=== PATIENT | female | born 1965 | race Hispanic/Latino ===

== ENCOUNTER 2019-04-23 11:33 | Emergency (ER) | payer OTHER, SELFPAY ==
[2019-04-23] MEDS ORDERED: LIDOCAINE 1% MPF 5 ML VIAL ONE (12:22)
[2019-04-23] MEDS ORDERED: BUPIVACAINE 0.5% PF 10 ML VIAL ONE (12:22)
[2019-04-23] MEDS ORDERED: TETANUS & DIPHTHERIA TOX,ADULT 0.5 ML VIAL ONE (12:27)
--- NOTE | 2019-04-23 12:51 | EDPHYS ---
Physician Documentation [facility] Name: Alexa Barr Age: 53 yrs Sex: Female : 1965 Arrival Date: 04/23/2019 Time: 11:35 Bed 19 Private MD: ED Physician Suraj Perdomo HPI: 04/23 12:30 This 53 yrs old Female presents to ER via Ambulatory with complaints of Thumb kb laceration. 12:30 The patient has a laceration related to: opening aluminum can occurred at home, and kb there are no complicating factors. The injury was accidental. The laceration(s) is(are) located on the palmar aspect of proximal phalanx of right thumb. Onset: The symptoms/episode began/occurred just prior to arrival. Associated signs and symptoms: The patient has no apparent associated signs or symptoms. The patient has not experienced similar symptoms in the past. The patient has not recently seen a physician. 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 - Social history:: Smoking status: Patient/guardian denies using tobacco. - Ebola Screening: : Patient denies travel to an Ebola-affected area in the 21 days before illness onset. ROS: 12:27 Constitutional: Negative for fever, chills, and weight loss, ENT: Negative for injury, kb pain, and discharge, Neck: Negative for injury, pain, and swelling, Cardiovascular: Negative for chest pain, palpitations, and edema, Respiratory: Negative for shortness of breath, cough, wheezing, and pleuritic chest pain, Abdomen/GI: Negative for abdominal pain, nausea, vomiting, diarrhea, and constipation, Back: Negative for injury and pain, Neuro: Negative for headache, weakness, numbness, tingling, and seizure. 12:27 Skin: Positive for laceration(s), of the palmar aspect of proximal phalanx of right thumb. Exam: 12:27 Constitutional: This is a well developed, well nourished patient who is awake, alert, kb and in no acute distress. Head/Face: Normocephalic, atraumatic. ENT: Nares patent. No nasal discharge, no septal abnormalities noted. Tympanic membranes are normal and external auditory canals are clear. Oropharynx with no redness, swelling, or masses, exudates, or evidence of obstruction, uvula midline. Mucous membranes moist. Neck: Trachea midline, no thyromegaly or masses palpated, and no cervical lymphadenopathy. Supple, full range of motion without nuchal rigidity, or vertebral point tenderness. No Meningismus. Chest/axilla: Normal chest wall appearance and motion. Nontender with no deformity. No lesions are appreciated. Cardiovascular: Regular rate and rhythm with a normal S1 and S2. No gallops, murmurs, or rubs. Normal PMI, no JVD. No pulse deficits. Respiratory: Lungs have equal breath sounds bilaterally, clear to auscultation and percussion. No rales, rhonchi or wheezes noted. No increased work of breathing, no retractions or nasal flaring. Abdomen/GI: Soft, non-tender, with normal bowel sounds. No distension or tympany. No guarding or rebound. No evidence of tenderness throughout. MS/ Extremity: Pulses equal, no cyanosis. Neurovascular intact. Full, normal range of motion. Neuro: Awake and alert, GCS 15, oriented to person, place, time, and situation. Cranial nerves II-XII grossly intact. Motor strength 5/5 in all extremities. Sensory grossly intact. Cerebellar exam normal. Normal gait. 12:27 Skin: injury, laceration(s), the wound is approximately 3 cm(s), of the palmar aspect of proximal phalanx of right thumb, that can be described as clean, no foreign body, jagged, with mild bleeding. Vital Signs: 11:36 BP 124 / 83; Pulse 78; Resp 17; Temp 97.9(O); Pulse Ox 97% on R/A; Weight 85.73 kg (R); tw2 Height 4 ft. 10 in. (147.32 cm); Pain 7/10; 11:36 Body Mass Index 39.50 (85.73 kg, 147.32 cm) tw2 Procedures: 12:26 Nerve block: (digital) of palmar aspect of proximal phalanx of right thumb Medication: kb Lidocaine 1% without epinephrine Marcaine 0.5%, Amount: 6 mls were injected, Effect: the patient has resolution of the pain, Set up for procedure. Performed by Yina GONSALEZ Patient tolerated well. Laceration: 12:48 Wound Repair of 3cm ( 1.2in ) subcutaneous laceration to palmar aspect of proximal kb phalanx of right thumb. Linear shaped.. Distal neuro/vascular/tendon intact. Anesthesia: Digital block administered with 1% lidocaine. Wound prep: Extensive cleansing with hibiclenz by me, Wound irrigation with saline by me. Skin closed with 6 5-0 Prolene using simple sutures and sterile technique. Dressed with Neosporin, non-adherent dressing. Patient tolerated well. MDM: 11:42 Patient medically screened. kb 12:26 Data reviewed: vital signs, nurses notes. Data interpreted: Pulse oximetry: on room air kb is 97 %. Interpretation: normal. 12:49 Counseling: I had a detailed discussion with the patient and/or guardian regarding: the kb historical points, exam findings, and any diagnostic results supporting the discharge/admit diagnosis, the need for outpatient follow up, a family practitioner, to return to the emergency department if symptoms worsen or persist or if there are any questions or concerns that arise at home. 04/23 11:47 Order name: Prolene, Sutures; Complete Time: 12:22 kb 04/23 11:47 Order name: Dressing - Wound; Complete Time: 13:08 kb 04/23 11:47 Order name: Gloves, Sterile; Complete Time: 12:22 kb 04/23 11:47 Order name: Setup Suture Tray; Complete Time: 12:22 kb Administered Medications: 12:21 Drug: Bupivacaine (0.5 %) 1 vials {Note: by YvroseMECHANICAL PRODUCT DESIGN ENGINEER.} Volume: 10 ml; Route: tw2 Infiltration; 12:22 Drug: Lidocaine (1 %) 1 vials {Note: by YvroseMECHANICAL PRODUCT DESIGN ENGINEER.} Volume: 5 ml; Route: Infiltration; tw2 12:28 Drug: Tetanus-Diphtheria Toxoid Adult 0.5 ml {Gas Pipe Layer: [employer]. Exp: tw2 10/30/2020. Lot #: [id number]. } Route: IM; Site: left deltoid; Disposition: 04/23/19 12:50 Discharged to Home. Impression: Laceration without foreign body of right thumb without damage to nail. - Condition is Stable. - Discharge Instructions: Laceration Care, Adult, [id number]. - Medication Reconciliation Form, Thank You Letter, Antibiotic Education, Prescription Opioid Use form. - Follow up: Emergency Department; When: As needed; Reason: Worsening of condition. Follow up: Private Physician; When: 2 - 3 days; Reason: Recheck today's complaints, Continuance of care, Re-evaluation by your physician. Addendum: 04/27/2019 10:36 Co-signature as Attending Physician, Suraj Perdomo MD I agree with the assessment and c koroma plan of care. Signatures: Yina Aparicio, BIOPHARMACEUTICAL REP-C BIOPHARMACEUTICAL REP-Ckb Suraj Perdomo MD MD cha Hall, Patricia, RN RN Nicole Bailon RN RN tw2 Corrections: (The following items were deleted from the chart) 04/23 12:49 12:27 Skin: injury, laceration(s), the wound is approximately 2 cm(s), of the palmar kb aspect of proximal phalanx of right thumb, that can be described as clean, no foreign body, jagged, with mild bleeding, kb 13:08 12:50 04/23/2019 12:50 Discharged to Home. Impression: Laceration without foreign body ph of right thumb without damage to nail. Condition is Stable. Forms are Medication Reconciliation Form, Thank You Letter, Antibiotic Education, Prescription Opioid Use. Follow up: Emergency Department; When: As needed; Reason: Worsening of condition. Follow up: Private Physician; When: 2 - 3 days; Reason: Recheck today's complaints, Continuance of care, Re-evaluation by your physician. kb
--- NOTE | 2019-04-23 12:51 | ER ---
Nurse's Notes [facility] Name: Alexa Barr Age: 53 yrs Sex: Female : 1965 Arrival Date: 04/23/2019 Time: 11:35 Bed 19 Private MD: Diagnosis: Laceration without foreign body of right thumb without damage to nail Presentation: 04/23 11:35 Presenting complaint: Patient states: i was opening a can and went to push the lid up tw2 and it cut me. Transition of care: patient was not received from another setting of care. Onset of symptoms was April 23, 2019. Risk Assessment: Do you want to hurt yourself or someone else? Patient reports no desire to harm self or others. Initial Sepsis Screen: Does the patient meet any 2 criteria? No. Patient's initial sepsis screen is negative. Does the patient have a suspected source of infection? No. Patient's initial sepsis screen is negative. Care prior to arrival: None. 11:35 Method Of Arrival: Ambulatory tw2 11:35 Acuity: MAMIE 4 tw2 Triage Assessment: 11:36 General: Appears in no apparent distress. obese, well groomed, Behavior is calm, tw2 cooperative, appropriate for age. Pain: Complains of pain in palmar aspect of distal phalanx of right thumb and palmar aspect of proximal phalanx of right thumb. 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 - Social history:: Smoking status: Patient/guardian denies using tobacco. - Ebola Screening: : Patient denies travel to an Ebola-affected area in the 21 days before illness onset. Screenin:46 Abuse screen: Denies threats or abuse. Denies injuries from another. Nutritional ph screening: No deficits noted. Tuberculosis screening: No symptoms or risk factors identified. Fall Risk None identified. Assessment: 12:45 Reassessment: Patient appears in no apparent distress at this time. Patient and/or ph family updated on plan of care and expected duration. Pain level reassessed. Patient is alert, oriented x 3, equal unlabored respirations, skin warm/dry/pink. ERP at bedside to suture lacertaion. Vital Signs: 11:36 BP 124 / 83; Pulse 78; Resp 17; Temp 97.9(O); Pulse Ox 97% on R/A; Weight 85.73 kg (R); tw2 Height 4 ft. 10 in. (147.32 cm); Pain 7/10; 11:36 Body Mass Index 39.50 (85.73 kg, 147.32 cm) tw2 ED Course: 11:35 Patient arrived in ED. mr 11:36 Triage completed. tw2 11:36 [facility]icio [facility]C [facility]. kb 11:36 Suraj Perdomo MD is Attending Physician. kb 11:36 Arm band placed on. tw2 11:43 Catalina Kellogg, RN is Primary Nurse. ph 12:46 Patient has correct armband on for positive identification. Placed in gown. Bed in low ph position. Call light in reach. Pulse ox on. NIBP on. Door closed. Noise minimized. 12:47 Assist provider with laceration repair on palmar aspect of proximal phalanx of right ph thumb and palmar aspect of distal phalanx of right thumb using sutures. Set up tray. Performed by Catalina Kellogg RN Dressed with Kerlix, Patient tolerated well. 13:00 Patient did not have IV access during this emergency room visit. ph Administered Medications: 12:21 Drug: Bupivacaine (0.5 %) 1 vials {Note: by ALY Frances.} Volume: 10 ml; Route: tw2 Infiltration; 12:22 Drug: Lidocaine (1 %) 1 vials {Note: by ALY Frances.} Volume: 5 ml; Route: Infiltration; tw2 12:28 Drug: Tetanus-Diphtheria Toxoid Adult 0.5 ml {Journeyman Powerhouse Operator: [employer]. Exp: 10/30/2020. Lot #: [id number]. } Route: IM; Site: left deltoid; Outcome: 12:50 Discharge ordered by . kb 13:08 Patient left the ED. ph 13:08 Discharged to home ambulatory, with family. ph 13:08 Condition: good 13:08 Discharge instructions given to patient, Instructed on discharge instructions, follow up and referral plans. wound care, Demonstrated understanding of instructions, follow-up care, wound care. Signatures: Yina Aparicio, WALLACE BROWER-Terese Rain Patricia RN RN Nicole Bailon RN RN tw2
[2019-04-23 13:25] VITALS: BP 124/83; TEMP 97.9; O2SAT 97
== END 2019-04-23 13:08 | disposition home or self-care (01) ==
LOC: ER 11:33
PROC: 0JQJ0ZZ Repair Right Hand Subcutaneous Tissue and Fascia, Open Approach (ICD-10-PCS; principal; 2019-04-23)
DX: S61.011A Laceration without foreign body of right thumb without damage to nail, initial encounter (principal); W26.8XXA Contact with other sharp object(s), not elsewhere classified, initial encounter; Y93.89 Activity, other specified; Y92.009 Unspecified place in unspecified non-institutional (private) residence as the place of occurrence of the external cause; Z88.1 Allergy status to other antibiotic agents; Z23 Encounter for immunization
CPT/HCPCS: 64450; 90471; 90714; 99283